=== PATIENT | male | born 1965 | race Caucasian/White ===

== ENCOUNTER 2024-03-28 21:58 | Emergency (ER) | payer SELFPAY ==
[~2024-03-28] VITALS: Ht 167.6 cm; Wt 79.4 kg
[2024-03-28 22:02] VITALS: BP 132/88; PULSE 100; RESP 18; TEMP 98; O2SAT 99
[2024-03-28 22:08] VITALS: BP 132/88; PULSE 100; RESP 18; TEMP 98; O2SAT 99
== END 2024-03-28 23:26 | disposition home or self-care (01) ==
LOC: MED 21:58
DX: Z04.1 Encounter for examination and observation following transport accident (principal); V89.2XXA Person injured in unspecified motor-vehicle accident, traffic, initial encounter; Y93.89 Activity, other specified; Y92.89 Other specified places as the place of occurrence of the external cause; Y99.8 Other external cause status
CPT/HCPCS: 99283